=== PATIENT | female | born 1995 | race Caucasian/White ===

== ENCOUNTER 2016-07-23 04:58 | Emergency (ER) | payer MEDICAID ==
--- NOTE | ~2016-07-23 | ER ---
PATIENT'S NAME: [facility]RA [facility] AGE: 20 Y [address] ROOM: [place] [id number] LOCATION: [facility] ADMIT DATE: 07/23/2016 ER/Outpatient Report DISCHARGE DATE: FAMILY PHYSICIAN: Jennifer Luke MD ATTENDING PHYSICIAN: Adelso Belle HISTORY OF PRESENT ILLNESS: A 20-year-old female, who presents with chief complaint of left lower tooth pain. It is basically a wisdom tooth on the left side lower jaw. She says that she has an appointment to take it out, but it has been 3 weeks. She says that she noticed some white milky drainage from it and has been hurting her more, so that is why she wanted to have it checked out. She says she has had some chills, but cannot register any fever. No sore throat, no other complaints at this time. No fever, no hoarse voice, no sinus pain, no swollen jaw or face, no cough, and no other complaints. PAST MEDICAL HISTORY: Anemia. PAST SURGICAL HISTORY: Repair of clubfoot. SOCIAL HISTORY: She does not smoke, drink, or use any drugs. REVIEW OF SYSTEMS: Reviewed by me and negative with the exception of those discussed in HPI. PHYSICAL EXAMINATION: VITAL SIGNS: The patient is 5 foot 5 inches, she weighs 110.7 kilos, blood pressure is 149/83, heart rate 92, respiratory rate 16, temperature is 98.8, saturating 94% on room air. GENERAL: The patient is speaking in full sentences. She is not in any acute distress. Her voice is normal. She has no hoarse voice. She has no pharyngeal erythema or exudates. No trouble handling secretions. There is some mild tenderness and some erythema around her wisdom tooth on the left lower jaw. There is no fluctuance and I feel I do not see any discharge either though. EMERGENCY ROOM COURSE: Discussed with the patient given a forming infection, she does need to see her dentist to have her wisdom tooth pulled, but we will put her on clindamycin for now as she is allergic to penicillin. IMPRESSION: PATIENT'S NAME: [facility]RA [facility] AGE: 20 Y [address] ROOM: [place] [address] LOCATION: [facility] ADMIT DATE: 07/23/2016 ER/Outpatient Report DISCHARGE DATE: FAMILY PHYSICIAN: Jennifer Luke MD ATTENDING PHYSICIAN: Adelso Belle Dental pain. ADELSO BELLE MD CAW/modl /[id number] d: 07/23/16626 t: 07/24/16 1820, OUTPATIENT REPORT
== END 2016-07-23 05:20 | disposition disaster alternative care site (69) ==
LOC: GMED 04:58
DX: K08.89 Other specified disorders of teeth and supporting structures (principal); D64.9 Anemia, unspecified; Z98.890 Other specified postprocedural states; Z79.899 Other long term (current) drug therapy